=== PATIENT | male | born 1990 | race African-American/Black ===

== ENCOUNTER 2020-11-20 22:21 | Emergency (ER) | payer OTHER ==
--- NOTE | 2020-11-20 23:53 | EDM.PDOC ---
ED HPI GENERAL MEDICAL PROBLEM - General Chief Complaint: Laceration Stated Complaint: RT HAND PINKY LAC Time Seen by Provider: 11/20/20 23:53 - History of Present Illness INITIAL COMMENTS - FREE TEXT/NARRATIVE: 30-year-old gentleman presents the emergency room with a laceration on his pinky finger. Patient cut his right pinky finger with a cooking spatula that had sharp edges. Patient was cooking an omelette, someone else was shown him a different way to use it. And he ended up cutting himself. He is not entirely sure when his last tetanus shot was. His past medical history is noncontributory and unremarkable he is not on any routine medications. - Related Data Allergies Allergy/AdvReac Type Severity Reaction Status Date / Time bee venom protein (honey bee) Allergy Severe Swelling Verified 11/20/20 22:43 Home Meds: Home Meds . [No Known Home Meds] 11/20/20 [History] Past Medical History - Past Health History Medical/Surgical History: Denies Medical/Surgical History Endocrine/Metabolic History: Reports: Obesity/BMI 30+ - Infectious Disease History Infectious Disease History: Reports: MRSA - Past Surgical History Dermatological Surgical History: Reports: Skin Graft Social & Family History - Family History Family Medical History: No Pertinent Family History - Tobacco Use Tobacco Use Status *Q: Never Tobacco User - Caffeine Use Caffeine Use: Reports: None - Recreational Drug Use Recreational Drug Use: Yes Recreational Drug Type: Reports: Marijuana/Hashish ED ROS GENERAL - Review of Systems Review Of Systems: See Below Respiratory: Reports: No Symptoms Cardiovascular: Reports: No Symptoms GI/Abdominal: Reports: No Symptoms ED EXAM, SKIN/RASH Exam: See Below Exam Limited By: No Limitations General Appearance: Alert, No Apparent Distress Head: Atraumatic, Normocephalic Neck: Normal Inspection, Supple, Non-Tender, Full Range of Motion Respiratory/Chest: No Respiratory Distress, Lungs Clear, Normal Breath Sounds Cardiovascular: Regular Rate, Rhythm, No Edema, No Murmur Extremities: Other (Examination of his right hand shows normal tendon function in all digits. Patient has a transverse laceration over the dorsum of the distal interphalangeal joint of the pinky finger. Flexion and extension is intact.) ED SKIN PROCEDURES - Laceration/Wound Repair Right Digit - 5th (Baby) Appearance: Subcutaneous Distal NVT: Neuro & Vascular Intact Anesthetic Type: Digital Local Anesthesia - Lidocaine (Xylocaine): 1% Plain Local Anesthetic Volume: 2cc Skin Prep: Saline Exploration/Debridement/Repair: Wound Explored, Explored to Base (He had continuous bleeding whenever the wound gape but no obvious foreign bodies identified) Closed with: Sutures Lac/Wound length In cm: 1.3 Suture Size: 4-0 Suture Type: Nylon Suture Size: 4-0 # of Sutures: 4 Complications: No Progress/Comments: Patient in satisfactory wound approximation with 4 simple sutures of 4-0 nylon. Because of the extensor surface location the patient was placed in a palmar splint to keep him from flexing that joint. Course - Vital Signs Last Recorded V/S: Last Vital Signs Temp 36.1 C 11/20/20 22:38 Pulse 65 11/20/20 22:38 Resp 16 11/20/20 22:38 BP 130/87 11/20/20 22:38 Pulse Ox 97 11/20/20 22:38 - Orders/Labs/Meds Meds: Medications Discontinued Medications Generic Name Dose Route Start Last Admin Trade Name Alexis PRN Reason Stop Dose Admin Lidocaine HCl 10 ml 11/21/20 00:02 11/21/20 00:23 Lidocaine 1% 10 Ml Mdv INJECT 11/21/20 00:03 10 ml ONETIME ONE Administration Departure - Departure Time of Disposition: 00:35 Disposition: Home, Self-Care 01 Clinical Impression: Laceration of right little finger - Discharge Information Referrals: PCP,None [Primary Care Provider] - Forms: ED Department Discharge Additional Instructions: Return to the emergency room with any questions problems or worsening symptoms. Return with any signs or concerns of infection. Your finger was placed in a splint wear this for at least 1 week. Follow-up in the hospital clinic for suture removal in 10 to 12 days. The [facility] phone number is [phone]. Keep the wound absolutely clean and dry for the next 48 hours after 48 hours you can let water gently run over the area but no scrubbing. Minimize the time that it is wet gently dab dry. Sepsis Event Note (ED) - Evaluation Sepsis Screening Result: No Definite Risk - Focused Exam Vital Signs: Vital Signs Temp Pulse Resp BP Pulse Ox 11/20/20 22:38 36.1 C 65 16 130/87 97
[2020-11-21] MEDS ORDERED: Lidocaine 1% 10 ML MDV INJECT ONE (00:02)
== END 2020-11-21 00:44 | disposition home or self-care (01) ==
LOC: JD.ED 22:21
DX: S61.216A Laceration without foreign body of right little finger without damage to nail, initial encounter (principal); Z91.030 Bee allergy status; W26.8XXA Contact with other sharp object(s), not elsewhere classified, initial encounter; Y93.G3 Activity, cooking and baking
CPT/HCPCS: 12001; 99282; 99282-25